=== PATIENT | male | born 1945 | race Native Hawaiian/Other Pacific Islander ===

== ENCOUNTER 2018-08-08 09:26 | Outpatient (CLI) | payer OTHER ==
[~2018-08-08 09:26] MED LIST: AMLODIPINE BESYLATE PO; ATOR20TA2 PO; CIPRO500 MG PO; CYAN10009 IM; DONE5TAB PO; ESCI10TA PO; FINA5TAB2 PO; FOLI1TAB26 PO; GLUCOSE15 GM/33 G PO; INSU100P SC; MAGN400T4 PO; MEMA5TAB PO; MULTIVITAMI1 PO; NAC 600600 MG PO; PANTOPRAZOLE 40MG TA PO; POLY GLYCOL3350 M1 PO; RISP0.25 PO
[2018-08-08 10:05] LABS: PLATELET COUNT 219 K/uL (142-355)
[2018-08-08 10:22] LABS: POTASSIUM 4.2 mmol/L (3.6-5.2)
== END 2018-08-08 19:45 | disposition home or self-care (01) ==
LOC: LABW 09:26
PROVIDERS: Internal Medicine
DX: E11.9 Type 2 diabetes mellitus without complications (principal); E53.8 Deficiency of other specified B group vitamins; N39.0 Urinary tract infection, site not specified; B96.5 Pseudomonas (aeruginosa) (mallei) (pseudomallei) as the cause of diseases classified elsewhere
CPT/HCPCS: 36415; 80053; 80061; 81000; 82607; 83036; 84439; 84443; 85027; 87077; 87086; 87088; 87186

== ENCOUNTER 2018-09-05 08:50 | Outpatient (CLI) | payer OTHER ==
[2018-09-05 09:41] LABS: PLATELET COUNT 209 K/uL (142-355)
== END 2018-09-05 23:49 | disposition home or self-care (01) ==
LOC: LABW 08:50
PROVIDERS: Internal Medicine
DX: D64.9 Anemia, unspecified (principal)
CPT/HCPCS: 36415; 85027

== ENCOUNTER 2020-01-09 12:28 | Outpatient (CLI) | payer OTHER ==
[2020-01-09 12:46] LABS: PLATELET COUNT 179 K/uL (142-355)
[2020-01-09 13:08] LABS: POTASSIUM 4.3 mmol/L (3.6-5.2)
== END 2020-01-09 21:33 | disposition home or self-care (01) ==
LOC: CT 12:28
PROVIDERS: Internal Medicine
DX: R41.82 Altered mental status, unspecified (principal); E11.9 Type 2 diabetes mellitus without complications; F03.90 Unspecified dementia, unspecified severity, without behavioral disturbance, psychotic disturbance, mood disturbance, and anxiety; E53.8 Deficiency of other specified B group vitamins
CPT/HCPCS: 80053; 80061; 81000; 82043; 82570; 82607; 83036; 84439; 84443; 85027

== ENCOUNTER 2020-05-02 20:40 | Emergency (ER) | payer OTHER ==
[~2020-05-02] VITALS: Ht 182.9 cm; Wt 86.2 kg
[2020-05-02 21:01] LABS: PLATELET COUNT 179 K/uL (142-355)
[2020-05-02 21:10] LABS: POTASSIUM 4.1 mmol/L (3.6-5.2)
[2020-05-02 23:09] LABS: PARTIAL THROMBOPLASTIN TIME 30.7 SECONDS (24.5-33.6)
[2020-05-03 00:30] VITALS: TEMP 100
[2020-05-03 00:46] VITALS: BP 106/49
== END 2020-05-03 01:04 | disposition home or self-care (01) ==
LOC: ED 20:44
PROVIDERS: Family Medicine
DX: J18.9 Pneumonia, unspecified organism (principal); R50.9 Fever, unspecified; R79.89 Other specified abnormal findings of blood chemistry; Z20.828 Contact with and (suspected) exposure to other viral communicable diseases; R06.02 Shortness of breath
CPT/HCPCS: 80053; 81000; 82728; 85027; 85379; 85610; 85730; 87502; 87635; 96374; 99284; J0696; Q9963; U0003

== ENCOUNTER 2020-11-04 11:56 | Outpatient (CLI) | payer OTHER ==
[2020-11-04 12:32] LABS: PLATELET COUNT 148 K/uL (142-355)
[2020-11-04 12:41] LABS: POTASSIUM 4.3 mmol/L (3.6-5.2)
== END 2020-11-04 19:49 | disposition home or self-care (01) ==
LOC: LAB 11:56
PROVIDERS: ATTEND Internal Medicine
DX: E11.9 Type 2 diabetes mellitus without complications (principal); F03.90 Unspecified dementia, unspecified severity, without behavioral disturbance, psychotic disturbance, mood disturbance, and anxiety
CPT/HCPCS: 80053; 80061; 82607; 83036; 84439; 84443; 85027

== ENCOUNTER 2020-12-08 13:55 | Emergency (ER) | payer OTHER ==
[~2020-12-08] VITALS: Ht 182.9 cm; Wt 86.2 kg
[2020-12-08 14:00] VITALS: TEMP 97.4
[2020-12-08 14:48] LABS: POTASSIUM 4.2 mmol/L (3.6-5.2); SODIUM 142 mmol/L (136-145)
[2020-12-08 14:54] LABS: PLATELET COUNT 181 K/uL (142-355)
[2020-12-08 16:30] VITALS: BP 153/62
== END 2020-12-08 16:35 ==
LOC: ED 13:55
PROVIDERS: Emergency Medicine
DX: E86.0 Dehydration (principal); R63.0 Anorexia; F03.90 Unspecified dementia, unspecified severity, without behavioral disturbance, psychotic disturbance, mood disturbance, and anxiety
CPT/HCPCS: 80053; 81000; 82550; 83735; 84484; 85027; 93005; 96360; 99284